=== PATIENT | female | born 1995 | race Caucasian/White ===

== ENCOUNTER → 2022-08-16 | Outpatient (CLI) | payer OTHER, SELFPAY ==
[2022-08-19 08:10] LABS: Chlamydia By Nucleic Acid AMP Negative (Negative)
[2022-08-19 10:47] LABS: Gonococcus By Nucleic Acid AMP Negative (Negative)
[2022-08-24 21:15] LABS: HPV Reflexed? NOT INDICATED
== END | disposition home or self-care (01) ==
LOC: LABSPEC 16:29
PROVIDERS: Referring Provider Obstetrics & Gynecology; Visit Provider Obstetrics & Gynecology
DX: Z34.90 Encounter for supervision of normal pregnancy, unspecified, unspecified trimester (principal)
CPT/HCPCS: 87086; 87491; 87591; 88175; G0145

== ENCOUNTER → 2022-10-01 | Outpatient (CLI) | payer OTHER, SELFPAY ==
[2022-10-01 09:08] LABS: Absolute Lymphocyte Count 1.63 X10^3/uL (0.83-4.51); Absolute Neutrophil Count 5.6 X10^3/uL (2.0-7.7); Basophil# 0.03 X10^3/uL; Basophil% 0.4 % (0-1); Eosinophil# 0.05 X10^3/uL; Eosinophils% 0.6 % (0-5); Hematocrit 38.3 % (37-47); Hemoglobin 12.9 g/dL (12.0-15.0); Lymphocyte # 1.63 X10^3/ul (0.83-4.51); Lymphocyte % 20.8 % (19-41); Mean Corp Hgb Conc 33.7 g/dL (32-36); Mean Corpuscular Hgb 30.4 pg (27.0-32.0); Mean Corpuscular Volume 90.3 fL (81-99); Mean Platelet Vol. 9.5 fl (6.2-12.0); Monocyte# 0.48 X10^3/uL; Monocyte% 6.1 % (0-10); NRBC Flagged by Analyzer 0 % (0-5); Neutrophil # 5.63 X10^3/uL (2.7-7.7); Neutrophil % 71.7 % (47-70); Platelet Count 265 K/mm3 (150-450); RBC Distribution Width SD 39.5 fl (35.1-43.9); Red Blood Count 4.24 M/mm3 (4.2-5.4); White Blood Count 7.9 K/mm3 (4.4-11.0)
[2022-10-04 09:32] LABS: HIV - WCH Non-Reactive (Nonreactive); Hepatitis B Surface Antigen Non-Reactive (Nonreactive); Hepatitis C Antibody Non-Reactive (Nonreactive); Rubella IgG Reactive (Nonreactive); Syphilis Antibodies Non-reactive
== END | disposition home or self-care (01) ==
PROVIDERS: PCP Family Medicine; Referring Provider Obstetrics & Gynecology; Visit Provider Obstetrics & Gynecology
DX: Z34.90 Encounter for supervision of normal pregnancy, unspecified, unspecified trimester (principal)
CPT/HCPCS: 36415; 85025; 86703; 86762; 86780; 86803; 86850; 86900; 86901; 87340

== ENCOUNTER → 2022-12-22 | Outpatient (CLI) | payer OTHER, SELFPAY ==
[2022-12-22 15:25] LABS: Absolute Lymphocyte Count 1.49 X10^3/uL (0.83-4.51); Absolute Neutrophil Count 6.8 X10^3/uL (2.0-7.7); Basophil# 0.03 X10^3/uL; Basophil% 0.3 % (0-1); Eosinophil# 0.08 X10^3/uL; Eosinophils% 0.9 % (0-5); Hematocrit 30.5 % (37-47); Hemoglobin 10.3 g/dL (12.0-15.0); Lymphocyte # 1.49 X10^3/ul (0.83-4.51); Lymphocyte % 16.2 % (19-41); Mean Corp Hgb Conc 33.8 g/dL (32-36); Mean Corpuscular Hgb 30.7 pg (27.0-32.0); Mean Platelet Vol. 9.5 fl (6.2-12.0); Monocyte# 0.76 X10^3/uL; Monocyte% 8.3 % (0-10); NRBC Flagged by Analyzer 0 % (0-5); Neutrophil # 6.78 X10^3/uL (2.7-7.7); Neutrophil % 73.6 % (47-70); Platelet Count 303 K/mm3 (150-450); RBC Distribution Width CV 12.2 % (11.6-14.6); Red Blood Count 3.35 M/mm3 (4.2-5.4); White Blood Count 9.2 K/mm3 (4.4-11.0)
[2022-12-22 15:35] LABS: Glucose Challenge Gest 1H 50g 112 mg/dL (70-140)
[2022-12-22 23:32] LABS: HIV - WCH Non-Reactive (Nonreactive); Syphilis Antibodies Non-reactive
== END | disposition home or self-care (01) ==
LOC: PAVLAB 14:46
PROVIDERS: PCP Family Medicine; Referring Provider Obstetrics & Gynecology; Visit Provider Obstetrics & Gynecology
DX: Z34.90 Encounter for supervision of normal pregnancy, unspecified, unspecified trimester (principal)
CPT/HCPCS: 36415; 82950; 85025; 86703; 86780

== ENCOUNTER → 2023-01-16 | Outpatient (CLI) | payer OTHER, SELFPAY ==
[2023-01-16 15:27] LABS: Absolute Neutrophil Count 6.2 X10^3/uL (2.0-7.7); Basophil# 0.04 X10^3/uL; Basophil% 0.5 % (0-1); Eosinophil# 0.08 X10^3/uL; Eosinophils% 0.9 % (0-5); Hematocrit 33.8 % (37-47); Hemoglobin 11.1 g/dL (12.0-15.0); Lymphocyte % 17.2 % (19-41); Mean Corp Hgb Conc 32.8 g/dL (32-36); Mean Corpuscular Hgb 30.7 pg (27.0-32.0); Mean Corpuscular Volume 93.6 fL (81-99); Mean Platelet Vol. 9.3 fl (6.2-12.0); Monocyte# 0.79 X10^3/uL; Monocyte% 9.1 % (0-10); NRBC Flagged by Analyzer 0 % (0-5); Neutrophil # 6.24 X10^3/uL (2.7-7.7); Neutrophil % 71.7 % (47-70); Platelet Count 296 K/mm3 (150-450); RBC Distribution Width CV 13.3 % (11.6-14.6); RBC Distribution Width SD 45.9 fl (35.1-43.9); Red Blood Count 3.61 M/mm3 (4.2-5.4); White Blood Count 8.7 K/mm3 (4.4-11.0)
== END | disposition home or self-care (01) ==
PROVIDERS: PCP Family Medicine; Referring Provider Advanced Practice Midwife; Visit Provider Advanced Practice Midwife
DX: D64.9 Anemia, unspecified (principal)
CPT/HCPCS: 36415; 85025

== ENCOUNTER → 2023-03-15 | Outpatient (CLI) | payer OTHER, SELFPAY ==
[2023-03-15 20:11] LABS: Group B Strep DNA By PCR Negative (Negative); Internal Control PASS; Probe Check PASS; Specimen Processing Control PASS
== END | disposition home or self-care (01) ==
PROVIDERS: PCP Family Medicine; Visit Provider Registered Nurse
DX: Z34.90 Encounter for supervision of normal pregnancy, unspecified, unspecified trimester (principal)
CPT/HCPCS: 87081; 87653

== ENCOUNTER → 2023-04-03 | Outpatient (CLI) | payer OTHER, SELFPAY ==
--- NOTE | 2023-04-03 11:41 | US_ITS ---
STUDY: SECOND AND THIRD TRIMESTER OBSTETRICAL ULTRASOUND - LIMITED REASON FOR EXAM: Female, 27 years old growth scan LMP: July 01, 2022. PRIOR ULTRASOUND: None. TECHNIQUE: Transabdominal TECHNICAL QUALITY: Adequate. FINDINGS: There is a single intrauterine fetus. The fetus is in a cephalic presentation. There is demonstrated cardiac activity with a heart rate of 132 bpm. There is a normal amniotic fluid volume. The largest amniotic fluid pocket measures 5.5 cm. The amniotic fluid index (PORTILLO) is 19.3 cm. The placenta is posterior in location and is not low lying. There are Grade 1 placental changes. The cervix measures 3.3 cm in length. BIOMETRY: BPD: 9.8 cm: 40 weeks, 1 days HC: 35.2 cm: 41 weeks, 0 days AC: 37.4 cm: 41 weeks, 2 days FL: 7.5 cm: 38 weeks, 2 days Age by LMP: 39 weeks, 3 days. AYALA by LMP: April 07, 2023. age by current US: 40 weeks, 2 days. AYALA by current US: April 01, 2023. Estimated weight: 4145 grams, +/- 622 grams, 91 percentile. US/OB Limited With Biometrics IMPRESSION: Single live intrauterine gestation with a mean gestational age of 40 weeks and 2 days. Electronically Signed: Ray Guzman MD at 9:19 EST ,
== END | disposition home or self-care (01) ==
PROVIDERS: PCP Family Medicine; Referring Provider Registered Nurse; Visit Provider Registered Nurse
DX: O99.019 Anemia complicating pregnancy, unspecified trimester (principal); Z3A.00 Weeks of gestation of pregnancy not specified
CPT/HCPCS: 76816

== ENCOUNTER → 2023-04-10 | Outpatient (CLI) | payer OTHER, SELFPAY ==
[2023-04-10 17:29] LABS: ROM Internal Control Test YES-OK TO RESULT pt. (Internal QC); ROM Patient Test Negative (Negative)
[2023-04-10 17:32] LABS: Record Kit Lot#, ROM+ K1374
== END | disposition home or self-care (01) ==
LOC: LABSPEC 17:04
PROVIDERS: PCP Family Medicine; Visit Provider Obstetrics & Gynecology
DX: O09.90 Supervision of high risk pregnancy, unspecified, unspecified trimester (principal); Z3A.00 Weeks of gestation of pregnancy not specified
CPT/HCPCS: 84112

== ENCOUNTER 2023-04-14 19:37 | Inpatient (IN) | payer OTHER, SELFPAY ==
[2023-04-14 19:25] VITALS: BP 127/73; PULSE 75; TEMP 37.2; O2SAT 97
[2023-04-14 19:46] VITALS: BMI 29.4
[2023-04-14] MEDS: Lactated Ringers 1,000 ML 50 ML IV (20:15)
[2023-04-14 20:26] LABS: Absolute Lymphocyte Count 1.62 X10^3/uL (0.83-4.51); Absolute Neutrophil Count 6.7 X10^3/uL (2.0-7.7); Basophil# 0.04 X10^3/uL; Basophil% 0.4 % (0-1); Eosinophil# 0.12 X10^3/uL; Eosinophils% 1.3 % (0-5); Hematocrit 36.9 % (37-47); Hemoglobin 12.1 g/dL (12.0-15.0); Lymphocyte # 1.62 X10^3/ul (0.83-4.51); Lymphocyte % 17.4 % (19-41); Mean Corp Hgb Conc 32.8 g/dL (32-36); Mean Corpuscular Hgb 29.2 pg (27.0-32.0); Mean Corpuscular Volume 89.1 fL (81-99); Mean Platelet Vol. 10.2 fl (6.2-12.0); Monocyte# 0.78 X10^3/uL; Monocyte% 8.4 % (0-10); NRBC Flagged by Analyzer 0 % (0-5); Neutrophil # 6.68 X10^3/uL (2.7-7.7); Neutrophil % 71.7 % (47-70); Platelet Count 284 K/mm3 (150-450); RBC Distribution Width CV 13.9 % (11.6-14.6); RBC Distribution Width SD 45.1 fl (35.1-43.9); Red Blood Count 4.14 M/mm3 (4.2-5.4); White Blood Count 9.3 K/mm3 (4.4-11.0)
[2023-04-14] MEDS: miSOPROStol 25 MCG TABLET VAGINAL (20:44)
[2023-04-14 21:04] VITALS: BP 110/66; PULSE 77; TEMP 37.2; O2SAT 97
[2023-04-14 21:05] LABS: Syphilis Antibodies Non-reactive
--- NOTE | 2023-04-14 22:00 | HP.PCM.OB_ITS ---
HPI - General General Date of Admission: 04/14/23 HPI Narrative TINY WASHINGTON, is a 27 y/o @ 41 weeks 4 days who presents to L&D for Indution of labor Maternal Data Information AYALA Calculator Estimated Delivery Date Method Current WG Current Estimate 04/07/23 Ultrasound #2 41w 1d Other Estimates 03/22/23 LMP (Certain) 43w 3d 04/11/23 Ultrasound #1 40w 4d PFSH PFSH Medical History Fracture of right upper extremity Hx of recurrent urinary tract infection Home Medications multivitamin no.47-iron fum 27 mg-folate no.1 1 mg-dha 300 mg capsule (PNV-DHA) 1 cap PO DAILY preganancy 08/10/22 [History Last Taken 04/10/23 22:00 1 cap] Allergy/AdvReac Type Severity Reaction Status Date / Time sulfamethoxazole Allergy Intermediate Hives Verified 04/14/23 19:48 [From Bactrim] trimethoprim [From Bactrim] Allergy Intermediate Hives Verified 04/14/23 19:48 cranberry Allergy Mild Hives Verified 04/14/23 19:48 tree nut Allergy Mild Itching Verified 04/14/23 19:48 Family History Grandmother Colon cancer, Onset Age: 55 Paternal Surgical History H/O pyeloplasty [place] teeth extracted Social History adopted: No household members: spouse current occupational status: employed 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 [employer] current occupational exposures/hazards: No pets and animals: Yes pets and animals: dog(s) history of recent travel: No sexually active: Yes Smoking Status: Never smoker alcohol intake: never substance use type: does not use well-balanced diet: daily or most days caffeine: Yes Type: other Number of servings: 1 eating out: 1-3 times/week during the past year weight has: remained stable what type of physical activity do you participate in: walking and yoga frequency: 1-2 times per week duration: 15-30 minutes/day katherine/presybeterian: Islam seatbelt use: always do you feel safe at home: Yes 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 History 1 Elective abortions Hx Para 0 Spontaneous abortions Hx # Term Pregnancies Ectopic pregnancies Hx # Pregnancies Multiple births # of living children Visit Details Expected Delivery Route/Plan Labor Preferences- CB/BF classes: yes labor support person: Kevin labor intervention preferences: limited intervention pain management options preferred: hydrotherapy, limited intervention cut cord/dad catch: yes to both : yes PP control planned: discussed discussed possible routes of delivery and associated risks: [] special requests: [] Plans Covid status: declines Flu vaccine: declines Tdap vaccine: declines Rhogam: NA LARC form signed: yes movement and labor precautions reviewed. Problem list reviewed and updated with the most current plan of care details and appropriate orders placed. Relevant counseling for the gestational age provided. Continue routine care and follow up unless otherwise noted in visit notes/problem list details OB Flowsheet Initial Weight: 140 lb Date -?-?-?-?-?-?-?-?-?-?-?-?- EGA Weight BP Urine Prot -?-?-?-?-?-?-?-?-?-?-?-?- Glucose FHR FuHt Pres Dilation -?-?-?-?-?-?-?-?-?-?-?-?- Effaced St Visit Note 08/16/22 -?-?-?-?-?-?-?-?-?-?-?-?- 6w 4d 140 lb 6 oz (+6 oz) 120/80 -?-?-?-?-?-?-?-?-?-?-?-?- 116 -?-?-?-?-?-?-?-?-?-?-?-?- JV- small CRL co nsistent with 6w but very tiny flickering only of heart beat. return in 2 weeks for ultrasound. 09/07/22 -?-?-?-?-?-?-?-?-?-?-?-?- 9w 5d 144 lb 6 oz (+4 lb 6 oz) 129/79 Negative -?-?-?-?-?-?-?-?-?-?-?-?- Negative 153 -?-?-?-?-?-?-?-?-?-?-?-?- JV- CRL measurin g 9 weeks 5 days. pt reassured. new ob labs in. declines NIPT. 10/05/22 -?-?-?-?-?-?-?-?-?-?-?-?- 13w 5d 144 lb 8 oz (+4 lb 8 oz) 125/75 Negative -?-?-?-?-?-?-?-?-?-?-?-?- Negative 155 -?-?-?-?-?-?-?-?-?-?-?-?- JV- no cramping or spotting. no complaints. anatomy scan ordered. 11/02/22 -?-?-?-?-?-?-?-?-?-?-?-?- 17w 5d 149 lb 4 oz (+9 lb 4 oz) 115/68 Negative -?-?-?-?-?-?-?-?-?-?-?-?- Negative 150 -?-?-?-?-?-?-?-?-?-?-?-?- KW-flutters. no vb/cramping. US scheduled. no concerns today 11/25/22 -?-?-?-?-?-?-?-?-?-?-?-?- 21w 0d 155 lb 2 oz (+15 lb 2 oz) 108/69 Negative -?-?-?--?-?-?-?-?-?-?-?-?- Negative 144 -?-?-?-?-?-?-?-?-?-?-?-?- JV- no lof, vagi nal bleeding, or dec fm. gct ordered. no complaints today 12/22/22 -?-?--?-?-?-?-?-?-?-?-?-?- 24w 6d 162 lb (+22 lb) 117/80 Negative -?-?-?-?-?-?-?-?-?-?-?-?- Negative 145 25 -?-?-?-?-?-?-?-?-?-?-?-?- KW-no vb/gurjit sargent good fm. FMLA papers to office today. Glucose done today. no concerns 01/16/23 -?-?-?-?-?-?-?-?-?-?-?-?- 28w 3d 168 lb 4 oz (+28 lb 4 oz) 116/72 Negative -?-?-?-?-?-?-?-?-?-?-?-?- Negative 148 -?-?-?-?-?-?-?-?-?-?-?-?- MH-No Vb, LOF. G ood FM. Has vag itching w/isa DC. Exam confirms yeast:rec OTC Monistat. Larc. Declines tdap/flu 01/30/23 -?-?-?-?-?-?-?-?-?-?-?-?- 30w 3d 170 lb (+30 lb) 102/74 Negative -?-?-?-?-?-?-?-?-?-?-?-?- Negative 145 32 -?-?-?-?-?-?-?-?-?-?-?-?- SM- no vb lof go od fm no regular ctx 02/16/23 -?-?-?-?-?-?-?-?-?-?-?-?- 32w 6d 174 lb 2 oz (+34 lb 2 oz) -?-?-?-?-?-?-?-?-?-?-?-?- 135 34 -?-?-?-?-?-?-?-?-?-?-?-?- kw- has baby elsie wer on Monday! no vb/lof/ctx. good fm. 03/01/23 -?-?-?-?-?-?-?-?-?-?-?-?- 34w 5d 175 lb 4 oz (+35 lb 4 oz) 116/79 Negative -?-?-?-?-?-?-?-?-?-?-?-?- Negative 143 35 Cephalic -?-?-?-?-?-?-?-?-?-?-?-?- JV- no lof, vagi nal bleeding, or dec fm. no complaints. 03/15/23 -?-?-?-?-?-?-?-?-?-?-?-?- 36w 5d 178 lb 4 oz (+38 lb 4 oz) 104/69 Negative -?-?-?-?-?-?-?-?-?-?-?-?- Negative 156 36 Cephalic 0 -?-?-?-?-?-?-?-?-?-?-?-?- LC- no vb/ctx/lo f. good fm. desires low intervention . reviewed preferences, copy in chart. 03/29/23 -?-?-?-?-?-?-?-?-?-?-?-?- 38w 5d 183 lb 8 oz (+43 lb 8 oz) 115/78 Negative -?-?-?-?-?-?-?-?-?-?-?-?- Negative 140 38 Cephalic -?-?-?-?-?-?-?-?-?-?-?-?- LC- no vb/ctx/lo f. good fm.desires to go up to 42 weeks, growth ordered. will obtain nst/maribell at 41/41.5 week if needed. 04/10/23 -?-?-?-?-?-?-?-?-?-?-?-?- 40w 3d 188 lb 6 oz (+48 lb 6 oz) 123/85 Negative -?-?-?-?-?-?-?-?-?-?-?-?- Negative 140 40 Cephalic 1 -?-?-?-?-?-?-?-?-?-?-?-?- 0 -3 SM- co que stionable lof no vb irregular ctx SM- co questionable lof no v b irregular ctx rom sent cervix soft, long and tunneling but internal os open. Notes Visit Date: 08/16/22 Last Updated by: Nelly Gonzalez, DO 116 ROS Constitutional Constitutional: Denies change in weight, fatigue, fever(s), headache(s), poor appetite or weakness Eyes Eyes: Denies blurry vision, change in vision, seeing flashes or spots in vision ENT HEENT: Denies dizziness, headache(s), loss taste/smell or sore throat Cardiovascular Cardiovascular: Denies chest pain, dizziness, dyspnea, irregular heart rhythm, leg edema, palpitations, rapid heart rate or vomiting Respiratory/Chest Respiratory/Chest: Denies chest tightness, cough, dyspnea or breast pain Gastrointestinal Gastrointestinal: Denies abdominal pain, anorexia, constipation, cramping, diarrhea, hemorrhoids, vomiting or weight changes Genitourinary Genitourinary: Denies dysuria, flank pain, genital lesions, genital pain, urinary frequency or urinary urgency Musculoskeletal Musculoskeletal: Denies back pain, difficulty walking, joint pain, limited range of motion, muscle cramps or numbness Integumentary Integumentary: Denies lesions or unusual bruising Neurologic Neurologic: Denies abnormal movements, abnormal speech, dizziness, numbness, seizure-like activity or syncope Psychiatric Psychiatric: Denies anxiety, behavioral changes, change in appetite, change in libido, cognitive impairment, confusion, depression, difficulty concentrating, hallucinations or suicidal thoughts Endocrine Endocrinology: Denies excessive sweating, polydipsia or polyuria Hematologic/Lymphatic Hematologic/Lymphatic: Denies easy bleeding, easy bruising or lymphadenopathy Allergic/Immunologic Allergic/Immunologic: Denies itchy eyes, lip swelling, seasonal rhinorrhea, rhinitis, throat swelling, tongue swelling, eczemia, wheezing or asthma Vital Signs Vital Signs Vital Signs: 04/14/23 19:25 04/14/23 19:25 04/14/23 19:25 Temperature Temperature Source Pulse Rate 75 Blood Pressure 127/73 H BP Systolic 127 BP Diastolic 73 Pulse Ox 97 04/14/23 19:25 04/14/23 19:25 04/14/23 21:04 Temperature 99.0 F Temperature Source Temporal Tympanic Pulse Rate Blood Pressure BP Systolic BP Diastolic Pulse Ox 04/14/23 21:04 04/14/23 21:04 04/14/23 21:04 Temperature Temperature Source Pulse Rate 77 Blood Pressure 110/66 BP Systolic 110 BP Diastolic 66 Pulse Ox 97 04/14/23 21:04 04/14/23 22:08 04/14/23 22:08 Temperature 98.9 F Temperature Source Temporal Pulse Rate Blood Pressure 106/55 L BP Systolic 106 BP Diastolic 55 Pulse Ox 04/14/23 22:08 04/14/23 22:08 04/14/23 22:08 Temperature 97.5 F L Temperature Source Pulse Rate 66 Blood Pressure BP Systolic BP Diastolic Pulse Ox 97 04/14/23 23:07 04/14/23 23:07 04/14/23 23:07 Temperature Temperature Source Pulse Rate 81 Blood Pressure 99/57 L BP Systolic 99 BP Diastolic 57 Pulse Ox 96 04/15/23 00:00 04/15/23 00:00 04/15/23 00:00 Temperature Temperature Source Pulse Rate 76 Blood Pressure 114/65 BP Systolic 114 BP Diastolic 65 Pulse Ox 98 04/15/23 00:01 04/15/23 00:01 04/15/23 00:53 Temperature 97.0 F L Temperature Source Temporal Pulse Rate Blood Pressure 118/82 H BP Systolic 118 BP Diastolic 82 Pulse Ox 04/15/23 00:53 04/15/23 00:53 04/15/23 00:53 Temperature Temperature Source Pulse Rate 71 68 Blood Pressure BP Systolic BP Diastolic Pulse Ox 97 04/15/23 02:03 04/15/23 02:03 04/15/23 02:03 Temperature Temperature Source Temporal Pulse Rate 64 Blood Pressure 110/59 L BP Systolic 110 BP Diastolic 59 Pulse Ox 04/15/23 02:03 04/15/23 02:03 04/15/23 03:02 Temperature 98.9 F Temperature Source Pulse Rate Blood Pressure 108/58 L BP Systolic 108 BP Diastolic 58 Pulse Ox 98 04/15/23 03:02 04/15/23 03:02 Temperature Temperature Source Pulse Rate 73 Blood Pressure BP Systolic BP Diastolic Pulse Ox 95 Weight Weight: 187 lb 13.341 oz Body Mass Index (BMI) 29.4 Physical Exam Const alert, oriented x3, no apparent distress and healthy appearing General Appearance: cooperative; Negative for anxious HEENT normocephalic Face and Sinus: normal facial exam Eyes EOMs intact bilaterally and no scleral icterus General Eye: normal appearance of both eyes Neck full ROM and supple Lymph Lymphatic: no lymphadenopathy noted Chest Chest: abnormal inspection of the chest Resp normal respiratory effort Effort and Inspection: able to speak in complete sentences Cardio regular rate GI soft to palpation and non-tender Inspection: gravid Palpation: soft; Negative for tender external exam normal Amniotic Fluid: ROM+plus Back/Spine no CVA tenderness Extremity normal to inspection, full ROM and no clubbing, cyanosis or edema General Extremity: Negative for calf tenderness or edema Skin Lesions: no lesions Rashes: no rashes Psych mental status grossly normal Labs Labs Labs: Blood Type A POSITIVE Antibody Screen NEGATIVE Hct 36.9 % (37-47) L Hgb 12.1 g/dL (12.0-15.0) Obstetrics Ultrasound Syphilis Total Ab Non-reactive Rubella IgG Antibody Reactive (Nonreactive) Hep Bs Antigen Non-Reactive (Nonreactive) Hepatitis C Antibody Non-Reactive (Nonreactive) Chlamydia DNA (SHYLA) Negative (Negative) N.gonorrhoeae DNA (SHYLA) Negative (Negative) HIV 1&2 Antibody Non-Reactive (Nonreactive) Glucose 1 Hr 50 gm 112 mg/dL (70-140) Group B Strep DNA Negative (Negative) Assessment & Plan (1) Anemia: QUALIFIERS: Anemia type: iron deficiency Iron deficiency anemia type: unspecified iron deficiency Qualified Code(s): D50.9 - Iron deficiency anemia, unspecified COMMENT: start iron. repeat in 4 weeks: improved (2) Supervision of high-risk : QUALIFIERS: Trimester: third trimester Qualified Code(s): O09.93 - Supervision of high risk , unspecified, third trimester COMMENT: PRR , AYALA 03/22/23, boy surprise name Kevin (3) : QUALIFIERS: Weeks of gestation: 40 weeks Qualified Code(s): Z3A.40 - 40 weeks gestation of COMMENT: GBS negative. anatomy nl, declined ntd NIPT & Carrier testing, nl GCT PLAN: Plan Patient presents IOL, plan management for with cytotec, then reese and pitocin/AROM. Pain management: plans epidural. GBS negative. Management of any complications: none I have reviewed the [facility] and made any clinically relevant updates.
[2023-04-14 22:08] VITALS: BP 106/55; PULSE 66; TEMP 36.4; O2SAT 97
[2023-04-14 23:07] VITALS: BP 99/57; PULSE 81; O2SAT 96
[2023-04-15] VITALS (54 sets, daily range): BP systolic 94–139; BP diastolic 55–93; PULSE 60–96; RESP 15–16; TEMP 36.1–37.5; O2SAT 95–100
[2023-04-15] MEDS: miSOPROStol 25 MCG TABLET VAGINAL (00:48)
[2023-04-15] MEDS: 0.9% Normal Saline Single 100 ML IV.SOLN. INTRA-UTER (03:56)
--- NOTE | 2023-04-15 04:02 | PN_ITS ---
Progress Note pt is sleeping but wakes easily. She is not feeling her frequent contractions. She consents to a reese bulb placement current tracing: FHT: 140 Moderate variability reactive no decelerations category I tracing [place]: q1-3 min Contractions cx: 1.5/60/-1 reese catheter was placed in the cervix using sterile technique. The bulb was inflated with 50cc ns. She tolerated this well. A/P: 41 week IOL continue with expectant management for now when bulb comes out will plan for arom and start pit as needed
[2023-04-15] MEDS: LACTATED RINGERS 500 ML 999 ML IV ×4 (05:47→13:14)
--- NOTE | 2023-04-15 09:16 | PCM.PN.BLA ---
Progress Note pt is sittingin labor tub and states that she feels great in there. I have explained that the tracing is still at times a cat 2 for minimal variability and contractions are still very frequent. Per nurse Maggy, membrane bag still in place and she was just checked and is 7 cm dilated. Patient declines AROM. 2nd 500cc fluid bolus order given. current tracing: FHT: currently after fluid bolus variability is more moderate with accelerations. There was one broken up possible deceleration down to 90's after a contraction that lasted only 30 seconds. [place]: q1 min Contractions reviewed tracing abnormalities since last note: changes present reflecting minimal variability at times A/P: IOL for post dates. status post 2 doses of cytotec and reese bulb. bulb was in for 1.5 hours and came out. after removal, cx was 6 cm. she is now 7 cm -next step is AROM and patient declines. will reassess after morning rounds
--- NOTE | 2023-04-15 11:10 | PCM.PN.BLA ---
Progress Note pt now ready for membrane rupture. She is standing at bedside out of tub and transferred to the bed in a supine position current tracing: FHT: currently Moderate variability reactive no decelerations category I tracing [place]: q 1- 2 min Contractions cx: 7/70/-1, posterior. membranes ruptured. brown tinged that appears to be more old blood than meconium reviewed tracing abnormalities since last note: overall still has intermittent minimal variability. 3 intermittent late decels picked up. Now with cat 1 tracing A/P: IOL - continue expectant management. pt breathing through contractions. suspect entering transitional labor now
[2023-04-15] MEDS: fentaNYL-bupivacaine (epidural) 100 ML BAG EPIDURAL ×2 (14:07→18:28)
[2023-04-15] MEDS: Lactated Ringers 1,000 ML 200 ML IV ×2 (15:50→20:55)
[2023-04-15] MEDS: Oxytocin 15 Units/NS 250ml 15 UNITS/250 ML IV.SOLN 2 UNITS IV (16:17)
[2023-04-15] MEDS: 0.9% Saline Lock 10 ML Syringe IV (18:29)
--- NOTE | 2023-04-15 20:11 | PCM.PN.BLA ---
Progress Note pt is sitting up in bed. she is comfortable with epidural current tracing: FHT: 150 mild and Moderate variability now with intermittent variable decels, cat 2 [place]: q2 min Contractions last recorded MVU measurement was 200 cx: 6-7/80/-1, meconium stained fluid continues to be present. CARMINE position pitocin at 6mu/min reviewed tracing abnormalities since last note: changes seen ranging from cat 1 moderate variability with accelerations at times , then times of minimal variability, intermittent late decelerations have resolved, however, currently with intermittent variable decelerations A/P: 27 y/o @ 41 weeks 1 day protracted labor for several hours. patient would like to continue with labor unless persistent cat 2 or maternal signs of chorioamnionitis. increase pitocin when able based on tolerance.
[2023-04-15] MEDS: Mag Hydrox/Al Hydrox/Simeth 30 ML UDC PO (20:46)
[2023-04-15] MEDS: Ondansetron 4 MG/2 ML Vial IV (20:54)
[2023-04-15] MEDS: CHLORHEXIDINE GLUC 2% CLOTH 1 EACH TOWELETTE TOPICAL (21:17)
--- NOTE | 2023-04-15 22:20 | PN_ITS ---
Progress Note nurse called to give report that after an additional 2 hours on pitocin at 10 mu/min and adequate MVu's cervix is still unchanged and patient is now ready for a section current tracing: FHT: 150's Moderate variability reactive, intermittent variable decelerations, cat 1/ [place]: q 3 min Contractions reviewed tracing abnormalities since last note: no changes A/P: After discussing the patient's diagnosis and treatment plan options, patient wishes to proceed with surgical management. I have discussed with the patient the risks, benefits, and alternatives of the procedure which include but are not limited to risks of anesthesia, bleeding, infection, possible damage to bowel, bladder, or surrounding vasculature which could lead to additional surgery to evaluate any complications. Patient agrees to procedure and wishes to proceed.
[2023-04-15] MEDS: Acetaminophen 500 MG Tablet PO (22:21)
[2023-04-15] MEDS: Sodium Citrate/Citric Acid 30 ML UDC PO (22:21)
--- NOTE | 2023-04-15 22:25 | DCINST_ITS ---
Discharge Instructions Diet Discharge Diet: No restrictions Activity Discharge Activity: May Not Drive (for 2 weeks or while taking narcotic pain medications.), May Shower and May Take a Tub Bath (in 7 days.) May resume sexual activity in: 4-6 weeks Weight Bearing Status: Full weight bearing Lifting Restrictions: 20 pounds Dressing / Incision Call your doctor if your incision/area has: Continuous Slow Oozing, Sudden Increased Bleeding, Increased Pain/ Swelling, Increased Redness and Foul Smelling Discharge Call your doctor if you observe: Fever of 101 or Higher and Using more than 1 pad per hour Suture Line Care: Avoid Pulling/Pushing and Avoid Pinching/Bending Cleanse incision/area with: Soap & Water and Keep Dressing Clean & Dry Follow Up Care Please Follow Up With: Nelly Gonzalez DO When: Call [phone] to make an appointment for an incision check in 1-2 weeks. Test Results: Test results from this visit will be discussed in further detail at your follow- up appointment, if applicable. Discharge Plan Admission Admit Date/Time: 04/14/23 19:37 Primary Reason for Your Visit: section Attending Provider: Nelly Gonzalez Primary Care Provider: Jermain Painter Discharge Orders/Prescriptions Prescriptions: New naproxen 500 mg tablet 500 mg PO BID PRN (Reason: pain) Qty: 30 0RF No Action PNV-DHA 27 mg iron-1 mg -300 mg capsule 1 cap PO DAILY Referrals / Follow Up: Jermain Painter DO [Primary Care Provider] - Disposition Disposition (needs filled in before D/C Order can be placed): Home, Self Care
[2023-04-15] MEDS: Cefazolin 2 GM in 0.9% Normal Saline (100mL Bag) 100 ML IV (22:32)
--- NOTE | 2023-04-15 23:14 | EX.PCM.OBRPT ---
Assessment & Plan (1) Failure to progress in labor: (2) Anemia: QUALIFIERS: Anemia type: iron deficiency Iron deficiency anemia type: unspecified iron deficiency Qualified Code(s): D50.9 - Iron deficiency anemia, unspecified COMMENT: start iron. repeat in 4 weeks: improved (3) Supervision of high-risk : QUALIFIERS: Trimester: third trimester Qualified Code(s): O09.93 - Supervision of high risk , unspecified, third trimester COMMENT: PRR , AYALA 03/22/23, boy surprise name Kevin (4) : QUALIFIERS: Weeks of gestation: 40 weeks Qualified Code(s): Z3A.40 - 40 weeks gestation of COMMENT: GBS negative. anatomy nl, declined ntd NIPT & Carrier testing, nl GCT Maternal Data Information AYALA Calculator Estimated Delivery Date Method Current WG Current Estimate 04/07/23 Ultrasound #2 41w 1d Other Estimates 03/22/23 LMP (Certain) 43w 3d 04/11/23 Ultrasound #1 40w 4d Final AYALA: 04/07/23 Final AYALA Source: US <20 weeks Gestational age: 41 weeks 1 day [place] Doctor Who Attended Delivery: Sol Spaluding Details Operative Information Date of Procedure: 04/15/23 Pre-Operative Diagnosis: 27 y/o @ 41 weeks 1 day, failure to progress in labor Post-Operative Diagnosis: 27 y/o @ 41 weeks 1 day, failure to progress in labor Classification: EMILIANA Procedure Type: low transverse ice hockey coach #1: Shonda Estes Type of Anesthesia: Epidural Antibiotic Given: Ancef 2 grams IV x1 and Zithromax 500 mg/5 mL X1 Estimated Blood Loss: 500cc Procedure Start Time: 22:48 Procedure Stop Time: 23:21 Time of Delivery: 22:53 Findings Description of Procedure: The patient was stalled at 6.5 cm for approximately 16 hours despite arom, pitocin, and position changes. MVU's were noted to be adequate for several hours. The decision was made to proceed with a section. Procedure: The patient was brought to the operating room where epidural anesthesia was found to be adequate. She was prepped and draped in the normal sterile fashion and was placed in a dorsal supine position with a leftward tilt. A reese catheter was placed and vaginal prep was performed with sterile technique. A Pfannenstiel skin incision was made with a scalpel and carried through to the underlying layers. The fascia was nicked in the midline and extended laterally using Molina scissors. The anterior aspect of the fascia was grasped with Kendal clamps and the underlying rectus muscles dissected off using the Metzenbaum scissors. The inferior aspect the fascia was also grasped with Kendal clamps and the underlying rectus muscle dissected off with the Metzenbaum scissors. The rectus muscles were in the midline. Peritoneum was entered sharply. The uterus was identified and a bladder blade was inserted into the abdomen. Bladder flap was created off the uterus using Metzenbaum scissors. A transverse incision was made with a scalpel and extended laterally manually. The infant's head was grasped with the help of my planning assistant and fundal pressure the infant was delivered through the uterine incision without difficulty. The mouth and nares were bulb suctioned. After a 30 second delay the cord was clamped and cut. The was handed off to the awaiting laminated plastics assembler and gluer for routine assessment. Placenta was delivered manually without difficulty. The uterus was exteriorized and cleared of all clots and debris. Incision was closed with an 0 Vicryl suture in a running locked fashion. Second layer of 1-0 monocryl suture was used in imbricating manner to create excellent closure and hemostasis. The uterus was returned to the abdomen. The gutters were cleared of all clots and debris. The peritoneum was closed in a pursestring pattern using a 3-0 Vicryl suture. This muscle was reapproximated with a 3-0 Vicryl. The fascia was closed with an stratafix PDS suture. Subcutaneous tissue layer was closed using a plain gut suture. The skin was closed with a 4-0 Monocryl subcuticular stitch. The patient tolerated the procedure well sponge lap and needle counts were correct at each tissue closure plane and the patient is now being brought to the recovery room in stable condition Presentation: Positive for Vertex Amniotic Membrane Rupture Type: Artificial Time of Membrane Ruptured: 1107 Amniotic Fluid Description: Clear and Lightly stained meconium Placental Delivery Description: Manual Removal Placenta Disposition: [facility] Cord Vessel Description: 3 Vessels Cord Entanglement: Around neck x 1, loose Nuchal Cord Compression: Without compression A Gender: Male (1 minute): 8 (5 minute): 9 Delayed Cord Clamping: Yes Complications Risks of Surgery Discussed w/Patient: Bleeding, Anesthesia Risks, Infection, Need for Future C-Sections and Injury to surrounding structure(s) including bowel and bladder Complications: none Multi Select Codes Urinary/Genital Urinary/Genital CPT Codes: 13555 delivery only
[2023-04-15] MEDS: Azithromycin 500 MG in Dextrose 5%-Water (250mL Bag) 250 ML 250 MG IV (23:16)
[2023-04-16] VITALS (15 sets, daily range): BP systolic 93–115; BP diastolic 52–79; PULSE 70–92; RESP 12–20; TEMP 36.3–36.7; O2SAT 96–100
[2023-04-16] MEDS: Oxytocin 15 Units/NS 250ml 15 UNITS/250 ML IV.SOLN 83 UNITS IV (00:10)
[2023-04-16] MEDS: Ketorolac 30 MG/ML Syringe IV ×4 (01:11→19:04)
[2023-04-16] MEDS: Lactated Ringers 1,000 ML 100 ML IV (03:20)
[2023-04-16] MEDS: Acetaminophen 500 MG Tablet 1000 MG PO ×4 (05:19→23:18)
[2023-04-16 06:06] LABS: Hemoglobin 11.2 g/dL (12.0-15.0); Mean Corp Hgb Conc 32.9 g/dL (32-36); Mean Corpuscular Hgb 29.8 pg (27.0-32.0); Mean Corpuscular Volume 90.4 fL (81-99); Platelet Count 253 K/mm3 (150-450); RBC Distribution Width CV 14.1 % (11.6-14.6); RBC Distribution Width SD 46.6 fl (35.1-43.9); Red Blood Count 3.76 M/mm3 (4.2-5.4); White Blood Count 19.6 K/mm3 (4.4-11.0)
--- NOTE | 2023-04-16 09:58 | PCM.PN.OB ---
Subjective Subjective Patient is laying in bed comfortably without complaints. She states that she slept on an off during the night. Lochia is mild and pain is minimal. Baby is breast feeding well. Objective Data Objective Data Vital Signs: Vital Signs Temp Pulse Resp BP Pulse Ox O2 Del Method 97.7 F L 70 16 95/52 L 97 Room Air 04/16/23 07:24 04/16/23 07:24 04/16/23 07:24 04/16/23 07:24 04/16/23 07:24 04/16/23 07:24 Oxygen Delivery Method Room Air Weight: 187 lb 13.341 oz Body Mass Index (BMI) 29.4 Intake & Output: Intake and Output for Last 24 Hours 04/14/23 04/15/23 04/16/23 23:59 23:59 23:59 Intake Total 45.83 / 45.83 5089.11 / 5089.11 505 / 505 Output Total 1100 / 1100 900 / 900 Balance 45.83 / 45.83 3989.11 / 3989.11 -395 / -395 Lab / Micro Data 04/16/23 05:49 Labs: Laboratory Results - last 24 hr 04/16/23 05:49: WBC 19.6 H, RBC 3.76 L, Hgb 11.2 L, Hct 34.0 L, MCV 90.4, MCH 29.8, MCHC 32.9, RDW Std Deviation 46.6 H, RDW Coeff of Ginny 14.1, Plt Count 253, MPV 10.0 ROS Constitutional Constitutional: Reports systems reviewed and no addt'l complaints, except as documented Cardiovascular Cardiovascular: Denies chest pain, dizziness, dyspnea or irregular heart rhythm Respiratory/Chest Respiratory/Chest: Denies cough, pain on inspiration or shortness of breath at rest Gastrointestinal Gastrointestinal: Denies abdominal pain, nausea or vomiting Genitourinary Genitourinary: Denies burning urination Musculoskeletal Musculoskeletal: Denies muscle cramps, muscle spasms or muscle weakness Neurologic Neurologic: Denies confusion, dizziness, headache(s) or lack of coordination Psychiatric Psychiatric: Denies anxiety, behavioral changes or depression Physical Exam HEENT normocephalic Resp normal respiratory effort and normal air movement GI soft to palpation, non-tender and non-distended Rectal Exam: other Other Details: Incision is clean, dry, and intact no CVA tenderness Extremity normal to inspection General Extremity: edema bilateral (trace ) Assessment & Plan (1) Failure to progress in labor: (2) Anemia: QUALIFIERS: Anemia type: iron deficiency Iron deficiency anemia type: unspecified iron deficiency Qualified Code(s): D50.9 - Iron deficiency anemia, unspecified COMMENT: start iron. repeat in 4 weeks: improved (3) Status post section: PLAN: Plan s/p LTCS PPD #1 1. routine post care 2. breast feeding- support given 3. rh positive 4. rubella immune 5. plan for dc to home tomorrow.
[2023-04-16] MEDS: 0.9% Saline Lock 10 ML Syringe IV ×2 (13:51→19:05)
[2023-04-17] MEDS: Naproxen 500 MG Tablet PO ×2 (01:56→10:12)
[2023-04-17 04:56] VITALS: BP 95/62; PULSE 76; RESP 16; TEMP 36.3; O2SAT 97
[2023-04-17] MEDS: Acetaminophen 500 MG Tablet 1000 MG PO ×2 (06:31→13:03)
--- NOTE | 2023-04-17 07:21 | PCM.PN.OB ---
Subjective Subjective Patient is laying in bed comfortably without complaints. She states that she slept on an off during the night. Lochia is mild and pain is minimal. Objective Data Objective Data Vital Signs: Vital Signs Temp Pulse Resp BP Pulse Ox O2 Del Method 97.4 F L 76 16 95/62 97 Room Air 04/17/23 04:56 04/17/23 04:56 04/17/23 04:56 04/17/23 04:56 04/17/23 04:56 04/17/23 04:56 Oxygen Delivery Method Room Air Weight: 187 lb 13.341 oz Body Mass Index (BMI) 29.4 Intake & Output: Intake and Output for Last 24 Hours 04/15/23 04/16/23 04/17/23 23:59 23:59 23:59 Intake Total 5089.11 / 5089.11 505 / 505 Output Total 1100 / 1100 900 / 900 Balance 3989.11 / 3989.11 -395 / -395 Lab / Micro Data 04/16/23 05:49 ROS Constitutional Constitutional: Reports systems reviewed and no addt'l complaints, except as documented Cardiovascular Cardiovascular: Denies chest pain, dizziness, dyspnea or irregular heart rhythm Respiratory/Chest Respiratory/Chest: Denies cough, pain on inspiration or shortness of breath at rest Gastrointestinal Gastrointestinal: Denies abdominal pain, nausea or vomiting Genitourinary Genitourinary: Denies burning urination Musculoskeletal Musculoskeletal: Denies muscle cramps, muscle spasms or muscle weakness Neurologic Neurologic: Denies confusion, dizziness, headache(s) or lack of coordination Psychiatric Psychiatric: Denies anxiety, behavioral changes or depression Physical Exam HEENT normocephalic Resp normal respiratory effort and normal air movement GI soft to palpation, non-tender and non-distended Rectal Exam: other Other Details: Incision is clean, dry, and intact no CVA tenderness Extremity normal to inspection General Extremity: edema bilateral (trace ) Assessment & Plan (1) Status post section: (2) Anemia: QUALIFIERS: Anemia type: iron deficiency Iron deficiency anemia type: unspecified iron deficiency Qualified Code(s): D50.9 - Iron deficiency anemia, unspecified COMMENT: start iron. repeat in 4 weeks: improved PLAN: Plan s/p LTCS PPD # 2 1. routine post care 2. breast feeding- support given 3. rh positive 4. rubella immune 5. plan for dc to home today
[2023-04-17 07:36] VITALS: BP 98/55; PULSE 80; RESP 16; TEMP 36.6; O2SAT 97
[2023-04-17] MEDS: Senna/Docusate Sodium 1 Tablet PO (10:12)
[2023-04-17 12:45] VITALS: BP 110/65; PULSE 68; RESP 16; TEMP 36.8; O2SAT 98
--- NOTE | 2023-04-18 12:07 | PCM.DC.SUM ---
Providers Date of Admission: 04/14/23 Primary Care Physician: Dr. Jermain Painter DO Reason For Visit: PRIMARY C SECTION Diagnosis Discharge Diagnosis (1) Status post section: Status: Acute Code(s): Z98.891 - History of uterine scar from previous surgery (2) Anemia: Status: Acute Code(s): D64.9 - Anemia, unspecified Qualifiers: Anemia type: iron deficiency Iron deficiency anemia type: unspecified iron deficiency Qualified Code(s): D50.9 - Iron deficiency anemia, unspecified Plan s/p LTCS PPD # 2 1. routine post care 2. breast feeding- support given 3. rh positive 4. rubella immune 5. plan for dc to home today Medications at Discharge Home Medications multivitamin no.47-iron fum 27 mg-folate no.1 1 mg-dha 300 mg capsule (PNV-DHA) 1 cap PO DAILY preganancy 08/10/22 naproxen 500 mg tablet 500 mg PO BID PRN pain #30 tabs 04/15/23 oxycodone-acetaminophen 5 mg-325 mg tablet (Percocet) 1 tab PO Q4H PRN pain 7 days #20 tabs 04/17/23 Hospital Course Operations None and section Summary of Care Provided Minutes Spent on Discharge: 30 Hospital Course: The patient was admitted for an induction of labor on 04/14/23 There were no complications other than failure to progress. A primary section was peformed after 16 hours of no cervical change. The surgery was uncomplicated. On day #1 she was tolerating pain well and ambulating, on day #2 she was ready for discharge. Physical Exam HEENT normocephalic Resp normal respiratory effort and normal air movement GI soft to palpation, non-tender and non-distended Rectal Exam: other Other Details: Incision is clean, dry, and intact no CVA tenderness Extremity normal to inspection General Extremity: edema bilateral (trace ) Weight / BMI Weight Weight: 187 lb 13.341 oz Body Mass Index (BMI) 29.4 ABG / Lab / Microbiology Data 04/16/23 05:49 D/C Instructions Discharge Diet: No restrictions May resume sexual activity in: 4-6 weeks Weight Bearing Status: Full weight bearing Call your doctor if your incision/area has: Continuous Slow Oozing, Sudden Increased Bleeding, Increased Pain/ Swelling, Increased Redness and Foul Smelling Discharge Call your doctor if you observe: Fever of 101 or Higher and Using more than 1 pad per hour Suture Line Care: Avoid Pulling/Pushing and Avoid Pinching/Bending Cleanse incision/area with: Soap & Water and Keep Dressing Clean & Dry Please Follow Up With: Nelly Gonzalez DO When: Call [phone] to make an appointment for an incision check in 1-2 weeks. Meaningful Use Info Meaningful Use Diagnoses (Choose all that apply): None applicable Discharge Plan Admission Admit Date/Time: 04/14/23 19:37 Primary Reason for Your Visit: section Attending Provider: Nelly Gonzalez Primary Care Provider: Jermain Painter Instructions Patient Instructions: After a Discharge Orders/Prescriptions Prescriptions: New naproxen 500 mg tablet 500 mg PO BID PRN (Reason: pain) Qty: 30 0RF oxycodone-acetaminophen [Percocet] 5-325 mg tablet 1 tab PO Q4H PRN (Reason: pain) 7 Days Qty: 20 0RF Rx Instructions: 1-2 tabs q 4 hrs as needed for pain No Action PNV-DHA 27 mg iron-1 mg -300 mg capsule 1 cap PO DAILY Referrals / Follow Up: Jermain Painter DO [Primary Care Provider] - Disposition Disposition (needs filled in before D/C Order can be placed): Home, Self Care
== END 2023-04-17 14:35 | disposition home or self-care (01) | DRG 788 ==
LOC: WPOUT 19:40 → WP 19:40
PROVIDERS: Admitting Provider Obstetrics & Gynecology; PCP Family Medicine; Referring Provider Obstetrics & Gynecology; Visit Provider Obstetrics & Gynecology
DX: O76 Abnormality in fetal heart rate and rhythm complicating labor and delivery (principal); D50.9 Iron deficiency anemia, unspecified; O48.0 Post-term pregnancy; O69.81X0 Labor and delivery complicated by cord around neck, without compression, not applicable or unspecified; O99.02 Anemia complicating childbirth; O77.0 Labor and delivery complicated by meconium in amniotic fluid; O62.0 Primary inadequate contractions; Z37.0 Single live birth; Z3A.41 41 weeks gestation of pregnancy; Z28.310 Unvaccinated for COVID-19; Z28.21 Immunization not carried out because of patient refusal
CPT/HCPCS: 59025; 59050; 85025; 85027; 86780; 86850; 86900; 86901; 99221; 99252; J7120; A4216; G0378; G0463; J2405

== ENCOUNTER → 2023-08-10 | Outpatient (CLI) | payer OTHER, SELFPAY ==
[2023-08-15 05:13] LABS: Chlamydia By Nucleic Acid AMP Negative (Negative); Gonococcus By Nucleic Acid AMP Negative (Negative)
== END | disposition home or self-care (01) ==
PROVIDERS: PCP Family Medicine; Visit Provider Nurse Practitioner Family
DX: Z11.3 Encounter for screening for infections with a predominantly sexual mode of transmission (principal); N89.8 Other specified noninflammatory disorders of vagina
CPT/HCPCS: 87070; 87077; 87205; 87255; 87491; 87591

== ENCOUNTER → 2024-01-26 | Outpatient (CLI) | payer OTHER, SELFPAY ==
[2024-01-30 03:07] LABS: Chlamydia By Nucleic Acid AMP Negative (Negative); Gonococcus By Nucleic Acid AMP Negative (Negative)
== END | disposition home or self-care (01) ==
LOC: LABSPEC 16:59
PROVIDERS: PCP Family Medicine; Referring Provider Obstetrics & Gynecology; Visit Provider Obstetrics & Gynecology
DX: Z34.90 Encounter for supervision of normal pregnancy, unspecified, unspecified trimester (principal)
CPT/HCPCS: 87086; 87088; 87186; 87491; 87591

== ENCOUNTER → 2024-02-20 | Outpatient (CLI) | payer OTHER, SELFPAY ==
[2024-02-20 14:43] LABS: Absolute Lymphocyte Count 1.46 X10^3/uL (0.83-4.51); Absolute Neutrophil Count 4.5 X10^3/uL (2.0-7.7); Basophil# 0.03 X10^3/uL; Basophil% 0.5 % (0-1); Eosinophil# 0.07 X10^3/uL; Eosinophils% 1.1 % (0-5); Hematocrit 38.4 % (37-47); Hemoglobin 12.5 g/dL (12.0-15.0); Lymphocyte # 1.46 X10^3/ul (0.83-4.51); Mean Corp Hgb Conc 32.6 g/dL (32-36); Mean Corpuscular Hgb 29.3 pg (27.0-32.0); Mean Corpuscular Volume 90.1 fL (81-99); Monocyte# 0.54 X10^3/uL; Monocyte% 8.1 % (0-10); NRBC Flagged by Analyzer 0 % (0-5); Neutrophil # 4.53 X10^3/uL (2.7-7.7); Neutrophil % 68.1 % (47-70); Platelet Count 304 K/mm3 (150-450); RBC Distribution Width CV 12.6 % (11.6-14.6); RBC Distribution Width SD 41.5 fl (35.1-43.9); Red Blood Count 4.26 M/mm3 (4.2-5.4); White Blood Count 6.6 K/mm3 (4.4-11.0)
[2024-02-28 05:07] LABS: HEPATITIS B SURFACE AG - REF Negative (Negative)
== END | disposition home or self-care (01) ==
LOC: WOBLAB 13:11
PROVIDERS: Obstetrics & Gynecology; PCP Family Medicine; Referring Provider Obstetrics & Gynecology; Visit Provider Obstetrics & Gynecology
DX: Z34.90 Encounter for supervision of normal pregnancy, unspecified, unspecified trimester (principal)
CPT/HCPCS: 36415; 85025; 86703; 86762; 86780; 86803; 86850; 86900; 86901; 87086; 87088; 87186; 87340

== ENCOUNTER → 2024-05-13 | Outpatient (CLI) | payer OTHER, SELFPAY ==
[2024-05-13 17:31] LABS: HIV - WCH Non-Reactive (Nonreactive); Hepatitis C Antibody Non-Reactive (Nonreactive); Syphilis Antibodies Non-reactive
== END | disposition home or self-care (01) ==
LOC: BWCLAB 13:41
PROVIDERS: PCP Family Medicine; Referring Provider Nurse Practitioner Women's Health; Visit Provider Nurse Practitioner Women's Health
DX: O09.92 Supervision of high risk pregnancy, unspecified, second trimester (principal); Z3A.00 Weeks of gestation of pregnancy not specified
CPT/HCPCS: 36415; 86703; 86780; 86803

== ENCOUNTER → 2024-06-11 | Outpatient (CLI) | payer OTHER, SELFPAY ==
[2024-06-11 17:20] LABS: Absolute Lymphocyte Count 1.28 X10^3/uL (0.83-4.51); Absolute Neutrophil Count 6.1 X10^3/uL (2.0-7.7); Basophil# 0.03 X10^3/uL; Basophil% 0.4 % (0-1); Eosinophil# 0.06 X10^3/uL; Eosinophils% 0.8 % (0-5); Hematocrit 34.8 % (37-47); Hemoglobin 11.2 g/dL (12.0-15.0); Lymphocyte # 1.28 X10^3/ul (0.83-4.51); Mean Corp Hgb Conc 32.2 g/dL (32-36); Mean Corpuscular Volume 90.2 fL (81-99); Mean Platelet Vol. 9.6 fl (6.2-12.0); Monocyte# 0.47 X10^3/uL; Monocyte% 5.9 % (0-10); NRBC Flagged by Analyzer 0 % (0-5); Neutrophil # 6.11 X10^3/uL (2.7-7.7); Neutrophil % 76.4 % (47-70); Platelet Count 321 K/mm3 (150-450); RBC Distribution Width CV 13.3 % (11.6-14.6); RBC Distribution Width SD 43.8 fl (35.1-43.9); Red Blood Count 3.86 M/mm3 (4.2-5.4)
[2024-06-11 18:14] LABS: Glucose Challenge Gest 1H 50g 103 mg/dL (70-140)
[2024-06-11 18:30] LABS: HIV - WCH Non-Reactive (Nonreactive); Syphilis Antibodies Non-reactive
== END | disposition home or self-care (01) ==
LOC: BWCLAB 13:03
PROVIDERS: PCP Family Medicine; Referring Provider Nurse Practitioner Women's Health; Visit Provider Nurse Practitioner Women's Health
DX: O09.92 Supervision of high risk pregnancy, unspecified, second trimester (principal); Z3A.00 Weeks of gestation of pregnancy not specified
CPT/HCPCS: 36415; 82950; 85025; 86703; 86780

== ENCOUNTER → 2024-08-19 | Outpatient (CLI) | payer OTHER, SELFPAY | END | disposition home or self-care (01) | LOC: LABSPEC 14:52 | PROVIDERS: PCP Family Medicine; Referring Provider Advanced Practice Midwife; Visit Provider Advanced Practice Midwife | DX: O09.93 Supervision of high risk pregnancy, unspecified, third trimester (principal); Z3A.36 36 weeks gestation of pregnancy | CPT/HCPCS: 87081 ==

== ENCOUNTER 2024-09-10 10:36 | Inpatient (IN) | payer OTHER, SELFPAY ==
[2024-09-10] VITALS (17 sets, daily range): BP systolic 98–133; BP diastolic 56–79; PULSE 49–90; RESP 14–18; TEMP 36.1–37.2; O2SAT 98–100; BMI 29.3
[2024-09-10] MEDS: Lactated Ringers 1,000 ML 999 ML IV (10:30)
[2024-09-10 11:10] LABS: Absolute Lymphocyte Count 1.52 X10^3/uL (0.83-4.51); Absolute Neutrophil Count 5.2 X10^3/uL (2.0-7.7); Basophil# 0.02 X10^3/uL; Basophil% 0.3 % (0-1); Eosinophil# 0.04 X10^3/uL; Eosinophils% 0.6 % (0-5); Hematocrit 28.8 % (37-47); Hemoglobin 9.4 g/dL (12.0-15.0); Lymphocyte # 1.52 X10^3/ul (0.83-4.51); Mean Corp Hgb Conc 32.6 g/dL (32-36); Mean Corpuscular Hgb 26.6 pg (27.0-32.0); Mean Corpuscular Volume 81.6 fL (81-99); Mean Platelet Vol. 10.3 fl (6.2-12.0); Monocyte# 0.46 X10^3/uL; Monocyte% 6.4 % (0-10); NRBC Flagged by Analyzer 0 % (0-5); Neutrophil # 5.17 X10^3/uL (2.7-7.7); Neutrophil % 71.3 % (47-70); Platelet Count 311 K/mm3 (150-450); RBC Distribution Width CV 14.4 % (11.6-14.6); RBC Distribution Width SD 42.4 fl (35.1-43.9); Red Blood Count 3.53 M/mm3 (4.2-5.4); White Blood Count 7.2 K/mm3 (4.4-11.0)
[2024-09-10] MEDS: Acetaminophen 500 MG Tablet 1000 MG PO ×2 (11:32→17:34)
[2024-09-10] MEDS: Lactated Ringers 1,000 ML 150 ML IV (11:33)
--- NOTE | 2024-09-10 11:57 | HP.PCM.OB_ITS ---
HPI - General General Date of Admission: 09/10/24 HPI Narrative TINY WASHINGTON, is a 28 y/o @ 40 weeks who presents to L&D for a repeat section. Maternal Data Information AYALA Calculator Estimated Delivery Date Method Current WG Current Estimate 09/10/24 Ultrasound #1 40w 0d Other Estimates 08/24/24 LMP (Certain) 42w 3d PFSH PFSH Medical History (Updated 09/10/24 @ 11:10 by Mary Ellen Calvert) Genital herpes affecting Urinary tract infection due to ESBL Klebsiella care following delivery Anemia Fracture of right upper extremity Hx of recurrent urinary tract infection Home Medications ?Medication ?Instructions ?Recorded ?Last Taken ?Type docosahexaenoic acid 200 mg mg PO 01/12/24 U nknown History capsule ( DHA) cephalexin 500 mg capsule 500 mg PO QDAY #30 caps 02/05 09/28 Unknown Rx ondansetron 4 mg disintegrating 4 mg PO Q6H PRN nausea and 09/09/24 Unknown Rx tablet vomiting #30 tabs Allergy/AdvReac Type Severity Reaction Status Date / Time sulfamethoxazole (From Allergy Intermediate Hives Verified 09/10/24 10:37 Bactrim) trimethoprim (From Bactrim) Allergy Intermediate Hives Verified 09/10/24 10:37 cranberry Allergy Mild Hives Verified 09/10/24 10:37 tree nut Allergy Mild Itching Verified 09/10/24 10:37 Family History Grandmother Colon cancer, Onset Age: 55 Paternal Grandfather Heart disease CVA (cerebral vascular accident) Kidney failure Surgical History History of surgery on arm Status post section [place] teeth extracted H/O pyeloplasty Social History adopted: No household members: spouse and children current occupational status: employed 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 [employer] current occupational exposures/hazards: No pets and animals: Yes pets and animals: dog(s) history of recent travel: Yes details: [place] in [place] 2023 out of state: Yes out of country: No sexually active: Yes Smoking Status: Never smoker alcohol intake: never substance use type: does not use well-balanced diet: about half the time caffeine: Yes Type: coffee eating out: 1-3 times/week during the past year weight has: other details: Son is 8mo PP what type of physical activity do you participate in: walking and weight training frequency: 3-4 times per week duration: 30-45 minutes/day katherine/anabaptist: Adventist seatbelt use: always do you feel safe at home: Yes 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 Date Name GA/Weeks Outcome Route Bth Weight [facility] Beau 41 live - full term 9lb 1oz Male epidural [facility] Mallory Brown Delivery Date: 04/15/23 Last Updated by: Valorie Briceño Failure to progress Visit Details Expected Delivery Route/Plan TOLAC patient counseled regarding risks/benefits of trial of labor versus repeat . ACOG/uptodate education given to patient. [] % likelihood of success per calculator TOLAC consent form signed: [] only wants to if goes into labor Plans Covid status: [] Flu vaccine: [] Tdap vaccine: na Rhogam: [] LARC form signed: declined movement and labor precautions reviewed. Problem list reviewed and updated with the most current plan of care details and appropriate orders placed. Relevant counseling for the gestational age provided. Continue routine care and follow up unless otherwise noted in visit notes/problem list details OB Flowsheet Initial Weight: Not Recorded Date -?-?-?-?-?-?-?-?-?-?-?-?- EGA Weight BP Urine Prot -?-?-?-?-?-?-?-?-?-?--?-?- Glucose FHR FuHt Pres Dilation -?-?-?-?-?-?-?-?-?-?-?-?- Effaced St Visit Note 01/26/24 -?-?-?-?-?-?-?-?-?-?-?-?- 7w 3d 160 lb 4 oz 126/82 -?-?-?-?-?-?-?-?-?-?-?-?- 144 -?-?-?-?-?-?-?-?-?-?-?-?- JV- CRL measurin g 1.19 cm and measuring 7 weeks 3 days. declines NIPT> wants to attempt if dies not need IOL. 02/20/24 -?-?-?-?-?-?-?-?-?-?-?-?- 11w 0d 165 lb 122/64 Trace -?-?-?-?-?-?-?-?-?-?-?-?- Negative 145 -?-?-?-?-?-?-?-?-?-?-?-?- SM- no vb lof cr maping 03/18/24 -?-?-?-?-?-?-?-?-?-?-?-?- 14w 6d 164 lb 122/77 Negative -?-?-?-?-?-?-?-?-?-?-?-?- Negative 145 -?-?-?-?-?-?-?-?-?-?-?-?- KW- no vb/francisco j flor. US scheduled 04/16. feeling good. 04/15/24 -?-?-?-?-?-?-?-?-?-?-?-?- 18w 6d 164 lb 4 oz 108/64 Nega tive -?-?-?-?-?-?-?-?-?-?-?-?- Negative 143 -?-?-?-?-?-?-?-?-?-?-?-?- -No VB. Feelin g movement. Denies concerns 05/13/24 -?-?-?-?-?-?-?-?-?-?-?-?- 22w 6d 167 lb 104/61 Negative -?-?-?-?-?-?-?-?-?-?-?-?- Negative 148 -?-?-?-?-?-?-?-?-?-?-?-?- MH-No Vb, LOF. G ood FM. Has appt 05/28 [facility] for VSD. [facility] outstanding PN labs today 06/11/24 -?-?-?-?-?-?-?-?-?-?-?-?- 27w 0d 170 lb 111/70 Negative -?-?-?-?-?-?-?-?-?-?-?-?- Negative 141 27 -?-?-?-?-?-?-?-?-?-?-?-?- JV- no lof, vagi nal bleeding, or dec fm. 28 week labs today. still has nausea and vomiting. will try reglan + pepcid. planning if labors on her own. otherwise 41 week section. 07/02/24 -?-?-?-?-?-?-?-?-?-?-?-?- 30w 0d 173 lb 110/69 -?-?-?-?-?-?-?-?-?-?-?-?- 140 30 -?-?-?-?--?-?-?-?-?-?-?-?- SM- no vb lof go od fm n oreuglar ctx 07/15/24 -?-?-?-?-?-?-?-?-?-?-?-?- 31w 6d 176 lb 2 oz 118/73 Nega tive -?-?-?-?-?-?-?-?-?-?-?-?- Negative 150 32 -?-?-?-?-?-?-?-?-?-?-?-?- KW- no vb/lof/ct x. good fm. LARC done. encouraged a log for when she is not feeling well. KW- no vb/lof/ctx. good fm. LARC done. encouraged a log for when she is not feeling well/anxious 07/29/24 -?-?-?-?-?-?-?-?-?-?-?-?- 33w 6d 176 lb 4 oz Negative -?-?-?-?-?-?-?-?-?-?-?-?- Negative 147 34 -?-?-?-?-?-?-?-?-?-?-?-?- JV- no complaint s. HSV prophylaxis ordered. 08/12/24 -?-?-?-?-?-?-?-?-?-?-?-?- 35w 6d 180 lb 6 oz 109/68 Nega tive -?-?-?-?-?-?-?-?-?-?-?-?- Negative 140 35 Cephalic -?-?-?-?-?-?-?-?-?-?-?-?- SM- started valt chelsea. ?questionable vertex plan scan at bedside next week 08/19/24 -?-?-?-?-?-?-?-?-?-?-?-?- 36w 6d 181 lb 130/76 Negative -?-?-?-?-?-?-?-?-?-?-?-?- Negative 160 36 Cephalic 1 -?-?-?-?-?-?-?-?-?-?-?-?- KW- 41 week c/s requested to be scheduled-does not want induction. bedside US for presentation. good fm, GBS today. 08/26/24 -?-?-?-?-?-?-?-?-?-?-?-?- 37w 6d 182 lb 8 oz 119/77 Nega tive -?-?-?-?-?-?-?-?-?-?-?-?- Negative 150 37 Cephalic 1 -?-?-?-?-?-?-?-?-?-?-?-?- 30 -2 Sm- no vb lof good fm no regualr ctx 09/02/24 -?-?-?-?-?-?-?-?-?-?-?-?- 38w 6d 184 lb 8 oz 113/72 Nega tive -?-?-?-?-?-?-?-?-?-?-?-?- Negative 165 Cephalic 0 -?-?-?-?-?-?-?-?-?-?-?-?- JV- internally c losed today. patient wants to do a rpt section at 40 weeks now. does not want to wait until 41. TOLAC consent signed. 09/09/24 -?-?-?-?-?-?-?-?-?-?-?-?- 39w 6d 184 lb 4 oz 134/77 Nega tive -?-?-?-?-?-?-?-?-?-?-?-?- Negative 139 38 Cephalic -?-?-?-?-?-?-?-?-?-?-?-?- JV- no lof, vagi nal bleeding, or dec fm. no complaints. pre-op exam today. ROS Constitutional Constitutional: Denies change in weight, fatigue, fever(s), headache(s), poor appetite or weakness Eyes Eyes: Denies blurry vision, change in vision, seeing flashes or spots in vision ENT HEENT: Denies dizziness, headache(s), loss taste/smell or sore throat Cardiovascular Cardiovascular: Denies chest pain, dizziness, dyspnea, irregular heart rhythm, leg edema, palpitations, rapid heart rate or vomiting Respiratory/Chest Respiratory/Chest: Denies chest tightness, cough, dyspnea or breast pain Gastrointestinal Gastrointestinal: Denies abdominal pain, anorexia, constipation, cramping, diarrhea, hemorrhoids, vomiting or weight changes Genitourinary Genitourinary: Denies dysuria, flank pain, genital lesions, genital pain, urinary frequency or urinary urgency Musculoskeletal Musculoskeletal: Denies back pain, difficulty walking, joint pain, limited range of motion, muscle cramps or numbness Integumentary Integumentary: Denies lesions or unusual bruising Neurologic Neurologic: Denies abnormal movements, abnormal speech, dizziness, numbness, seizure-like activity or syncope Psychiatric Psychiatric: Denies anxiety, behavioral changes, change in appetite, change in libido, cognitive impairment, confusion, depression, difficulty concentrating, hallucinations or suicidal thoughts Endocrine Endocrinology: Denies excessive sweating, polydipsia or polyuria Hematologic/Lymphatic Hematologic/Lymphatic: Denies easy bleeding, easy bruising or lymphadenopathy Allergic/Immunologic Allergic/Immunologic: Denies itchy eyes, lip swelling, seasonal rhinorrhea, rhinitis, throat swelling, tongue swelling, eczemia, wheezing or asthma Vital Signs Vital Signs Vital Signs: 09/10/24 11:50 Temperature 98.1 F Temperature Source Oral Pulse Rate 73 Respiratory Rate 14 Blood Pressure 128/76 H Blood Pressure Mean 93 Blood Pressure Source Monitor Blood Pressure Position Semi-Fowlers Blood Pressure Location Right Arm Pulse Ox 99 Oxygen Delivery Method Room Air Weight Weight: 182 lb Body Mass Index (BMI) 29.3 Physical Exam Const alert, oriented x3, no apparent distress and healthy appearing General Appearance: cooperative; Negative for anxious HEENT normocephalic Face and Sinus: normal facial exam Eyes EOMs intact bilaterally and no scleral icterus General Eye: normal appearance of both eyes Neck full ROM and supple Lymph Lymphatic: no lymphadenopathy noted Chest Chest: abnormal inspection of the chest Resp normal respiratory effort Effort and Inspection: able to speak in complete sentences Cardio regular rate GI soft to palpation and non-tender Inspection: gravid Palpation: soft; Negative for tender external exam normal Back/Spine no CVA tenderness Extremity normal to inspection, full ROM and no clubbing, cyanosis or edema General Extremity: Negative for calf tenderness or edema Skin Lesions: no lesions Rashes: no rashes Psych mental status grossly normal Labs Labs Labs: Blood Type A POSITIVE Antibody Screen NEGATIVE Hct 28.8 % (37-47) L Hgb 9.4 g/dL (12.0-15.0) L Obstetrics Ultrasound Syphilis Total Ab Non-reactive Rubella IgG Antibody Reactive (Nonreactive) Hep Bs Antigen Negative (Negative) Hepatitis C Antibody Non-Reactive (Nonreactive) Chlamydia DNA (SHYLA) Negative (Negative) N.gonorrhoeae DNA (SHYLA) Negative (Negative) HIV 1&2 Antibody Non-Reactive (Nonreactive) Glucose 1 Hr 50 gm 103 mg/dL (70-140) Group B Strep DNA Negative (Negative) Assessment & Plan (1) ventricular septal defect affecting antepartum care of mother: QUALIFIERS: Fetus number: single or unspecified fetus Qualified C ode(s): O35.BXX0 - Maternal care for other (suspected) abnormality and damage, cardiac anomalies, not applicable or unspecified COMMENT: very small. had consult with [facility], [place](05/28/24) and echo showed it is closing. needs fu 2 weeks after . (2) Recurrent urinary tract infection affecting : QUALIFIERS: Trimester: second trimester Qualified Code(s): O23.42 - Unspecified infection of urinary tract in , second trimester COMMENT: keflex prophylaxis. (3) H/O herpes genitalis: COMMENT: Valtrex at 34wk (4) History of delivery, currently : COMMENT: 2022 - plan TOLAC until 41 weeks, RLTCS scheduled for 09/10 @ 12 with JV (5) Supervision of high-risk : QUALIFIERS: Trimester: second trimester Qualified Code(s): O09.92 - Supervision of high risk , unspecified, second trimester COMMENT: [id number], AYALA 09/10/24, surprise PC: Gary, : Kevin (6) : QUALIFIERS: Weeks of gestation: 39 weeks Qualified Code(s): Z3A.39 - 39 weeks gestation of COMMENT: GBS neg, Discussed genetic/carrier testing - Declines PLAN: Plan After discussing the patient's diagnosis and treatment plan options, patient wishes to proceed with surgical management. I have discussed with the patient the risks, benefits, and alternatives of the procedure which include but are not limited to risks of anesthesia, bleeding, infection, possible damage to bowel, bladder, or surrounding vasculature which could lead to additional surgery to evaluate any complications.
[2024-09-10] MEDS: Cefazolin 2 GM in 0.9% Normal Saline (100mL Bag) 100 ML IV (12:06)
[2024-09-10] MEDS: Sodium Citrate/Citric Acid 30 ML UDC PO (12:06)
[2024-09-10 12:30] LABS: Syphilis Antibodies Nonreactive (Nonreactive)
--- NOTE | 2024-09-10 13:06 | OP.PCM_ITS ---
Assessment & Plan (1) ventricular septal defect affecting antepartum care of mother: QUALIFIERS: Fetus number: single or unspecified fetus Qualified Code(s): O35.BXX0 - Maternal care for other (suspected) abnormality and damage, cardiac anomalies, not applicable or unspecified COMMENT: very small. had consult with [facility] [place](05/28/24) and echo showed it is closing. needs fu 2 weeks after . (2) Recurrent urinary tract infection affecting : QUALIFIERS: Trimester: second trimester Qualified Code(s): O23.42 - Unspecified infection of urinary tract in , second trimester COMMENT: keflex prophylaxis. (3) H/O herpes genitalis: COMMENT: Valtrex at 34wk (4) History of delivery, currently : COMMENT: 2022 - plan TOLAC until 41 weeks, RLTCS scheduled for 09/10 @ 12 with JV (5) Supervision of high-risk : QUALIFIERS: Trimester: second trimester Qualified Code(s): O09.92 - Supervision of high risk , unspecified, second trimester COMMENT: [id number], AYALA 09/10/24, surprise PC: Gary, : Kevin (6) : QUALIFIERS: Weeks of gestation: 39 weeks Qualified Code(s): Z3A.39 - 39 weeks gestation of COMMENT: GBS neg, Discussed genetic/carrier testing - Declines Maternal Data Information AYALA Calculator Estimated Delivery Date Method Current WG Current Estimate 09/10/24 Ultrasound #1 40w 2d Other Estimates 08/24/24 LMP (Certain) 42w 5d Gestational age: 40 weeks Operative Report (OB) Details Procedure Type: low transverse Date of Procedure: 09/10/24 Procedure Start Time: 12:29 Procedure Stop Time: 13:05 Time of Delivery: 12:33 Pre-Operative Diagnosis: Repeat Elective Post-Operative Diagnosis: Same as Pre-operative diagnosis Classification: Scheduled Type of Anesthesia: Spinal Antibiotic Given: Ancef 2 grams IV x1 Drain: Matthews to straight drain Estimated Blood Loss: 700cc Findings Description of surgery: The patient is a @ 40 weeks presented for repeat . Spinal anesthesia was placed without difficulty. Matthews catheter was placed. The patient was placed in the dorsal supine position with leftward tilt. Patient was prepped and draped in the normal sterile fashion. Pfannenstiel skin incision was made with the scalpel and carried through to the underlying layer of fascia with the scalpel. Fascia was nicked in the midline and the incision extended laterally. The rectus bellies were dissected off superiorly and inferiorly with out complication both sharply and bluntly. The peritoneum was entered digitally. The incision was stretched and a low transverse uterine incision was made with the scalpel. The 's head was delivered at raumatically followed by the anterior and posterior shoulders without complication the rest of the delivered. The cord was clamped and cut and the infant was handed off to awaiting nurse. The placenta was delivered spontaneously immediately following and was noted to be intact and have a three- vessel cord. The uterus was exteriorized cleared of all clots and debris, and the incision was closed in a double layer closure using #1 Vicryl and #1 Monocryl. The ovaries and fallopian tubes were noted to be within normal limits. Before the uterus was returned to the abdomen, the lower uterine segment appeared distended and full of clot. The clot was manually pushed out of the vagina and the lower uterine segment then appeared normal. The uterus was returned to the maternal abdomen and gutters were cleared of all clots and debris. The peritoneum was closed with 3-0 Monocryl in a running fashion. Gloves were changed prior to fascial closure. Fascia was closed with 0 PDS in a running fashion. Subcutaneous tissue was copiously irrigated and the skin was closed with 3-0 Monocryl in a subcuticular fashion. Mepilex dressing was applied without complication. Patient was taken to recovery in stable condition. It was discussed with the patient that based on the clinical information obtained during this encounter, combined with her history, at this time I would recommend repeat section for future deliveries if further pregnancies are desired. Surgical findings: normal uterus , tubes, ovaries. Viable female infant Marnie Amniotic Fluid Description: Clear and Cloudy Placental Delivery Description: Manual Removal Placenta Disposition: [facility] Specimen collected: No Cord Vessel Description: 3 Vessels Cord Entanglement: None A gender: Female (1 minute): 9 (5 minute): 10 Delayed Cord Clamping: Yes Chin Strap Cutter woods rider: Yes Flour Tester: Vinnie Schreiber Tasks completed by account management assistant: Closing and Retracting Additional assistant director of residence life?: No Complications Complications: No Admit VTE Documentation VTE Present on Admission: Yes VTE Mechan Device Prophylaxis: SCD's VTE Pharm Prophylaxis Ordered: No Multi Select Codes Urinary/Genital Urinary/Genital CPT Codes: 80582 Delivery [facility]
--- NOTE | 2024-09-10 13:13 | DCINST_ITS ---
Discharge Instructions Diet Discharge Diet: No restrictions DC O2, CPAP, BIPAP needs Home O2 Discharge instructions: No Dressing / Incision Discharge Activity: May Not Drive (for 2 weeks or while taking narcotic pain medications.), May Shower and May Take a Tub Bath (in 7 days.) May resume sexual activity in: 4-6 weeks Weight Bearing Status: Full weight bearing Lifting Restrictions: 20 pounds Dressing / Incision Call your doctor if your incision/area has: Continuous Slow Oozing, Sudden Increased Bleeding, Increased Pain/ Swelling, Increased Redness and Foul Smelling Discharge Call your doctor if you observe: Fever of 101 or Higher and Using more than 1 pad per hour Suture Line Care: Avoid Pulling/Pushing and Avoid Pinching/Bending Cleanse incision/area with: Soap & Water and Keep Dressing Clean & Dry Follow Up Care Please Follow Up With: Nelly Gonzalez DO When: Call [phone] to make an appointment for an incision check in 1-2 weeks. Test Results: Test results from this visit will be discussed in further detail at your follow- up appointment, if applicable. Discharge Plan Admission Admit Date/Time: 09/10/24 10:36 Primary Reason for Your Visit: section Attending Provider: Nelly Gonzalez Primary Care Provider: Jermain Painter Discharge Orders/Prescriptions Prescriptions: New ibuprofen 800 mg tablet 800 mg PO Q8H PRN (Reason: pain) Qty: 30 0RF oxycodone-acetaminophen [Percocet] 5-325 mg tablet 1 tab PO Q4H PRN (Reason: pain) 7 Days Qty: 20 0RF Continued DHA 200 mg capsule PO ondansetron 4 mg tablet,disintegrating 4 mg PO Q6H PRN (Reason: nausea and vomiting) Qty: 30 3RF Discontinued cephalexin 500 mg capsule 500 mg PO QDAY Qty: 30 6RF Rx Instructions: take daily after completing course of acute therapy Referrals / Follow Up: Jermain Painter DO [Primary Care Provider] - Disposition Disposition (needs filled in before D/C Order can be placed): Home, Self Care
[2024-09-10] MEDS: Oxytocin 15 Units/NS 250ml 15 UNITS/250 ML IV.SOLN 83 UNITS IV (13:20)
[2024-09-10] MEDS: Ketorolac 30 MG/ML Syringe IV ×2 (14:18→20:39)
[2024-09-10] MEDS: Lactated Ringers 1,000 ML 100 ML IV (16:54)
[2024-09-10] MEDS: 0.9% Saline Lock 10 ML Syringe IV (20:39)
[2024-09-11] VITALS: BP 104/63; PULSE 82; RESP 16; TEMP 36.5; O2SAT 100
[2024-09-11] MEDS: Acetaminophen 500 MG Tablet 1000 MG PO ×3 (01:11→12:59)
[2024-09-11] MEDS: DiphenhydrAMINE 25 MG Capsule PO (01:15)
[2024-09-11] MEDS: Ketorolac 30 MG/ML Syringe IV ×2 (02:51→08:05)
[2024-09-11] MEDS: 0.9% Saline Lock 10 ML Syringe IV ×2 (02:51→08:05)
[2024-09-11 04:00] VITALS: BP 96/61; PULSE 60; RESP 17; TEMP 36.4; O2SAT 98
[2024-09-11 07:07] LABS: Hematocrit 24.3 % (37-47); Hemoglobin 7.8 g/dL (12.0-15.0); Mean Corp Hgb Conc 32.1 g/dL (32-36); Mean Corpuscular Hgb 26.4 pg (27.0-32.0); Mean Corpuscular Volume 82.1 fL (81-99); Mean Platelet Vol. 9.9 fl (6.2-12.0); Platelet Count 243 K/mm3 (150-450); RBC Distribution Width CV 14.6 % (11.6-14.6); RBC Distribution Width SD 42.6 fl (35.1-43.9); Red Blood Count 2.96 M/mm3 (4.2-5.4); White Blood Count 10.9 K/mm3 (4.4-11.0)
--- NOTE | 2024-09-11 08:13 | PCM.PN.OB ---
Subjective Subjective Patient doing well without complaints. Tolerating PO. Ambulating and voiding without difficulty. feeding well. Denies chest pain, shortness of breath, calf pain/swelling, fevers, chills, lightheadedness. Objective Data Objective Data Vital Signs: Vital Signs Temp Pulse Resp BP Pulse Ox O2 Del Method 97.6 F L 60 17 96/61 98 Room Air 09/11/24 04:00 09/11/24 04:00 09/11/24 04:00 09/11/24 04:00 09/11/24 04:00 09/11/24 04:00 Oxygen Delivery Method Room Air Weight: 182 lb Body Mass Index (BMI) 29.3 Intake & Output: Intake and Output for Last 24 Hours 09/09/24 09/10/24 09/11/24 23:59 23:59 23:59 Intake Total 2420 / 2420 Output Total 2779 / 2779 900 / 900 Balance -359 / -359 -900 / -900 Lab / Micro Data 09/11/24 06:45 Labs: Laboratory Results - last 24 hr 09/10/24 10:30: WBC 7.2, RBC 3.53 L, Hgb 9.4 L, Hct 28.8 L, MCV 81.6, MCH 26.6 L, MCHC 32.6, RDW Std Deviation 42.4, RDW Coeff of Ginny 14.4, Plt Count 311, MPV 10.3, Immature Gran % (Auto) 0.400, Neut % (Auto) 71.3 H, Lymph % (Auto) 21.0, [place] % (Auto) 6.4, Eos % (Auto) 0.6, Baso % (Auto) 0.3, Absolute Neuts (auto) 5.2, Absolute Lymphs (auto) 1.52, Nucleated RBC % 0, Syphilis Total Ab Nonreactive, Blood Type A POSITIVE, Antibody Screen NEGATIVE 09/11/24 06:45: WBC 10.9, RBC 2.96 L, Hgb 7.8 L, Hct 24.3 L, MCV 82.1, MCH 26.4 L, MCHC 32.1, RDW Std Deviation 42.6, RDW Coeff of Ginny 14.6, Plt Count 243, MPV 9.9 ROS Constitutional Constitutional: Reports systems reviewed and no addt'l complaints, except as documented Cardiovascular Cardiovascular: Reports systems reviewed and no addt'l complaints, except as documented Respiratory/Chest Respiratory/Chest: Reports systems reviewed and no addt'l complaints, except as documented Gastrointestinal Gastrointestinal: Reports systems reviewed and no addt'l complaints, except as documented Physical Exam Const alert, oriented x3 and no apparent distress HEENT Head and Scalp: atraumatic Resp normal respiratory effort GI soft to palpation and non-tender Inspection: incision intact, healing well and drainage (none) Bimanual Exam - Vag & Uterus: uterus non-tender Uterus Palpation: uterus fundus firm (below Umbilicus) Assessment & Plan (1) ventricular septal defect affecting antepartum care of mother: QUALIFIERS: Fetus number: single or unspecified fetus Qualified Code(s): O35.BXX0 - Maternal care for other (suspected) abnormality and damage, cardiac anomalies, not applicable or unspecified COMMENT: very small. had consult with [facility], [facility](05/28/24) and echo showed it is closing. needs fu 2 weeks after . (2) delivery delivered: COMMENT: MARILEE GAINES (3) Acute on chronic anemia: COMMENT: repeat cbc at noon, recommend iron and repeat cbc at popstpartum visit PLAN: Plan s/p LTCS PPD # 1 1. routine post care 2. breast feeding- support given 3. rh positive 4. rubella immune
[2024-09-11 08:18] VITALS: BP 99/68; PULSE 75; RESP 18; TEMP 36.7; O2SAT 98
[2024-09-11 11:47] LABS: Basophil# 0.02 X10^3/uL; Basophil% 0.2 % (0-1); Eosinophil# 0.04 X10^3/uL; Eosinophils% 0.3 % (0-5); Hematocrit 26.7 % (37-47); Hemoglobin 8.7 g/dL (12.0-15.0); Lymphocyte % 21.5 % (19-41); Mean Corp Hgb Conc 32.6 g/dL (32-36); Mean Corpuscular Hgb 26.5 pg (27.0-32.0); Mean Corpuscular Volume 81.4 fL (81-99); Mean Platelet Vol. 9.8 fl (6.2-12.0); Monocyte# 0.99 X10^3/uL; Monocyte% 8.5 % (0-10); NRBC Flagged by Analyzer 0 % (0-5); Neutrophil # 8.02 X10^3/uL (2.7-7.7); Neutrophil % 69.1 % (47-70); Platelet Count 275 K/mm3 (150-450); RBC Distribution Width CV 14.6 % (11.6-14.6); RBC Distribution Width SD 42.7 fl (35.1-43.9); Red Blood Count 3.28 M/mm3 (4.2-5.4); White Blood Count 11.6 K/mm3 (4.4-11.0)
[2024-09-11] MEDS: Ibuprofen 600 MG Tablet PO (14:06)
[2024-09-11] MEDS: Senna/Docusate Sodium 1 Tablet PO (14:07)
[2024-09-11 15:10] VITALS: BP 106/68; PULSE 70; RESP 16; TEMP 35.9; O2SAT 96
== END 2024-09-11 16:05 | disposition home or self-care (01) | DRG 788 ==
PROVIDERS: Obstetrics & Gynecology; Admitting Provider Obstetrics & Gynecology; PCP Family Medicine; Referring Provider Obstetrics & Gynecology; Visit Provider Obstetrics & Gynecology
PROC: 10D00Z1 Extraction of Products of Conception, Low, Open Approach (ICD-10-PCS; CPT 59514; principal; 2024-09-10 11:45)
DX: O34.211 Maternal care for low transverse scar from previous cesarean delivery (principal); O35.BXX0 Maternal care for other (suspected) fetal abnormality and damage, fetal cardiac anomalies, not applicable or unspecified; Z37.0 Single live birth; Z3A.39 39 weeks gestation of pregnancy; Z87.440 Personal history of urinary (tract) infections; Z86.19 Personal history of other infectious and parasitic diseases; O90.81 Anemia of the puerperium
CPT/HCPCS: 59025; 59050; 85025; 85027; 86780; 86850; 86900; 86901; 99221; A4216; G0378; J2405